=== PATIENT | female | born 1955 | race Caucasian/White ===

== ENCOUNTER 2022-10-28 09:57 | Day surgery (SDC) | payer OTHER ==
[~2022-10-28] VITALS: Ht 162.6 cm; Wt 121.1 kg
[~2022-10-28 09:57] MED LIST: CIPRO500 MG PO; COZAAR25 MG PO; FASENRA30 MG/1 ML; HUMALOG100 UNIT/2; INTESTINEX1 CA1 PO; LANTUS SOL100 UNIT/1; LEVO-T200 MCG PO; RECTICARE30 GM TP; SINGULAIR10 MG PO; TRIJARDY XR 101 EACH PO; ULTRACET PO
[2022-10-28] MEDS ORDERED: PERCOCET 5-3251 EACH PO (15:20)
[2022-10-28] MEDS ORDERED: RECTICARE30 GM TOP (15:21)
== END 2022-10-28 19:15 | disposition home or self-care (01) ==
LOC: CIR.AMB 09:57
PROVIDERS: ATTEND Surgery
DX: C20 Malignant neoplasm of rectum (principal); D12.8 Benign neoplasm of rectum; K92.2 Gastrointestinal hemorrhage, unspecified; I10 Essential (primary) hypertension; Z20.822 Contact with and (suspected) exposure to COVID-19